=== PATIENT | male | born 1965 | race Caucasian/White ===

== ENCOUNTER 2017-02-10 21:39 | Emergency (ER) | payer OTHER ==
[2017-02-10] MEDS ORDERED: Ketorolac Tromethamine 30 MG/ML VIAL ONE (21:50)
[2017-02-10 22:00] LABS: Bilirubin Negative (Negative); Blood, Urine Trace (Negative); Glucose, Urine (Dipstick) Negative (Negative); Ketone, Urine Negative (Negative); Nitrite Negative (Negative); Protein, Urine (Dipstick) Negative (Neg-Trace); Urobilinogen 0.2 mg/dL (0.2-1.0)
[2017-02-10] MEDS ORDERED: Promethazine HCl 25 MG/ML VIAL ONE (22:02)
[2017-02-10 22:05] LABS: Bacteria/HPF None Seen HPF (None Seen); Hyaline Casts/LPF NONE SEEN LPF (0-3 Hyaline); RBC/HPF 0-3 HPF (0-3); Squamous Epithelial None Seen HPF (0-3); WBC/HPF 0-3 HPF (0-3)
--- NOTE | 2017-02-10 23:07 | CT ---
ABDOMEN CT WITHOUT CONTRAST PELVIC CT WITHOUT CONTRAST: History: Left flank pain since this evening, back pain for one week. Nausea. Comparison: 08-23-15 Technique: Abdomen and pelvic CT performed without contrast. Coronal reformatted images are submitte d for interpretation. FINDINGS: ABDOMEN CT: Lung bases are clear. Heart size is normal. No significant pericardial fluid. Descending thoracic ao rta and abdominal aorta have normal caliber. No periaortic fat stranding. Limited evaluation of the solid organs due to lack of IV contrast. No solid organ abnormality. Calci fied granulomas of the spleen are noted. Gallbladder is unremarkable. No extrahepatic, retrocrural or lymphadenopathy. No mass, lymphadenopathy, free air or free fluid. Limited evaluation of the alimentary canal due to lack of oral contrast. No evidence of bowel obstru ction. Ileocecal junction is normal. Normal caliber appendix. Scattered fecal material in a nondiste nded, nondilated colon. Diverticula in the sigmoid colon. No diverticulitis. There are bilateral nonobstructing renal calculi. Large calcification in the left kidney measures 0. 5 cm in the craniocaudal dimension. Large calcification in the right renal collecting system measure s 0.5 cm in the craniocaudal dimension. Bilaterally, no hydronephrosis or perinephric fat stranding. Bilateral ureters have a normal caliber. No hydroureter, fat stranding, or ureterolithiasis. PELVIC CT: No mass, lymphadenopathy, free air or free fluid. Urinary bladder is unremarkable. No bladder calcif ications. There are no osteoblastic or osteolytic lesions. Vacuum disc phenomenon at the lumbosacral junction. No high grade central canal stenosis. Evaluation is limited by technique. IMPRESSION: 1. Bilateral nonobstructing renal calculi. 2. No evidence of obstructive uropathy. 3. Diverticulosis. POS: [facility]
== END 2017-02-11 00:05 | disposition home or self-care (01) ==
LOC: SCSER 21:39
DX: N20.0 Calculus of kidney (principal); I10 Essential (primary) hypertension; G47.30 Sleep apnea, unspecified; F17.210 Nicotine dependence, cigarettes, uncomplicated
CPT/HCPCS: 74176; 81003; 81015; 96361; 96374; 96375; J1885; J2270; J2550

== ENCOUNTER 2017-03-08 10:39 | Outpatient (CLI) | payer OTHER ==
--- NOTE | 2017-03-08 14:06 | RAD ---
CERVICAL SPINE THREE VIEWS: HISTORY: Neck pain. Radiation to left shoulder. FINDINGS: There is slight anterolisthesis of C4 on C5, measured at approximately 3 mm. Mild to moderate degen erative changes at C5-C6 and C6-C7. Mild loss of disk space at these levels and mild to moderate an terior osteophytes at these levels. Posterior spondylitic changes at C5-C6. IMPRESSION: Degenerative changes of the mid cervical spine, as described above. POS: [facility]
== END 2017-03-08 10:40 | disposition home or self-care (01) ==
LOC: SCSRAD 10:39
PROVIDERS: ATTEND Chiropractor
DX: Z87.81 Personal history of (healed) traumatic fracture (principal); M47.892 Other spondylosis, cervical region
CPT/HCPCS: 72040

== ENCOUNTER 2017-03-28 08:23 | Outpatient (CLI) | payer OTHER ==
[2017-03-28] MEDS ORDERED: Gadobenate Dimeglumine 529 MG/1 ML (20ML VIAL) ONE (09:00)
--- NOTE | 2017-03-28 10:49 | MRI ---
CERVICAL SPINE MRI WITH AND WITHOUT CONTRAST: Date: 03/28/17 COMPARISON: None. HISTORY: Neck pain for 3 weeks, cervical radiculopathy. TECHNIQUE: Multiplanar, multisequence MR imaging of the cervical spine obtained with and without contrast. FINDINGS: The sagittal STIR imaging demonstrates no focal area of osseous marrow edema. No prevertebral soft ti ssue abnormality. No anterolisthesis or retrolisthesis. There is mild degenerative change at the atla ntoaxial interspace. C2-3: There is mild facet and uncovertebral osteophyte formation on the left with mild left neural foramina l stenosis. No central canal or right neural foraminal stenosis. Minimal central disc bulge. C3-4: Disc space narrowing, disc desiccation, central annular tear, and mild disc bulge present with partia l effacement of the ventral thecal sac. No significant central canal stenosis. Facet and uncovertebra l osteophyte formation noted bilaterally, left greater than right. Mild left neural foraminal stenosi s. C4-5: Bilateral facet and uncovertebral osteophyte formation, right greater than left. There is moderate ne ural foraminal stenosis bilaterally, right greater than left. No significant central canal stenosis. C5-6: There is disc space narrowing, disc desiccation, and minimal disc bulge with no significant central c anal stenosis. There is significant facet and uncovertebral osteophyte formation, right greater than left, with moderate bilateral neural foraminal stenosis, right greater than left. C6-7: There is disc space narrowing, disc desiccation, and disc bulge. There is facet and uncovertebral ost eophyte formation. There is a left foraminal disc protrusion. Central canal stenosis is noted. There is severe left neural foraminal stenosis and mild/moderate rig ht neural foraminal stenosis. C7-T1: Intervertebral disc height and signal intensity is normal. Mild bilateral facet hypertrophy with no s ignificant central canal or neural foraminal stenosis. No focal area of abnormal signal intensity is identified within the cervical cord. Postcontrast imaging demonstrates no abnormal enhancement involving contents of the thecal sac, the i ntervertebral discs, or the imaged osseous structures. IMPRESSION: Degenerative change within the cervical spine with associated central canal and neural foraminal sten osis as detailed above. POS: [facility]
--- NOTE | 2017-03-28 11:02 | CT ---
CHEST CT WITHOUT CONTRAST: History: Evaluate lung mass. Comparison: 12-27-15, 12-16-14 Technique: Chest CT is performed without contrast. Coronal reformatted images are submitted for inter pretation. FINDINGS: Limited evaluation of the mediastinum due to lack of IV contrast. No mass, lymphadenopathy, or hemato ma. Heart size is within normal limits. No significant pericardial fluid. Visualized upper solid organs are unremarkable. Bilateral nonobstructing intrarenal calculi are noted . Trachea and central bronchi are patent. Stable bleb in the superior segment of the right lower lobe. Stable 4 mm nodule in the right lower lobe. There is a 6 mm nodule in the left lower lobe which is al so unchanged since December 2014. No new masses. No consolidation. No pleural effusion or pneumothorax. IMPRESSION: Stable subcentimeter nodules in the lung parenchyma. There is over two years of stability. POS: [facility]
== END 2017-03-28 08:24 | disposition home or self-care (01) ==
LOC: SCSCT 08:23
PROVIDERS: ATTEND Family Medicine
DX: R91.1 Solitary pulmonary nodule (principal); R91.8 Other nonspecific abnormal finding of lung field; M47.22 Other spondylosis with radiculopathy, cervical region; M48.02 Spinal stenosis, cervical region; M99.51 Intervertebral disc stenosis of neural canal of cervical region
CPT/HCPCS: 71250; 72156; A9579

== ENCOUNTER 2017-04-18 09:11 | Outpatient (CLI) | payer OTHER ==
--- NOTE | 2017-04-18 10:35 | RAD ---
CERVICAL SPINE THREE VIEWS: History: 51-year-old male with cervical radiculopathy and neck pain since February 2017. FINDINGS: Multilevel disc osteophytosis particularly from C4-5 through C6-7 levels. Mild stable anterolisthesis of C4 on C5 when compared to 03-08-17. There is no prevertebral soft tissue swelling. No abnormal tr anslation between flexion and extension. IMPRESSION: Stable anterolisthesis of C4 on C5 without evidence of abnormal translation between flexion and exten magan. Cervical spondylosis, particularly at C4-5 through C6-7. POS: [facility]
== END 2017-04-18 09:12 | disposition home or self-care (01) ==
LOC: TBSIIMAG 09:11
PROVIDERS: ATTEND Neurological Surgery
DX: M47.22 Other spondylosis with radiculopathy, cervical region (principal); M43.12 Spondylolisthesis, cervical region
CPT/HCPCS: 72040

== ENCOUNTER 2017-04-24 11:03 | Outpatient (CLI) | payer OTHER ==
[2017-04-24 12:19] LABS: #Eosinphils 0.2 thou/uL (0.0-0.7); #Lymphocytes 1.2 thou/uL (1.20-3.40); #Monocytes 0.4 thou/uL (0.11-0.59); #Neutrophils 2.7 thou/uL (1.40-6.50); %Lymphocytes 25.5 % (21.0-51.0); %Monocytes 9.1 % (0.0-10.0); Mean Platelet Volume 8.7 fL (7.4-10.4); Red Blood Cell (RBC) Count 4.19 mill/uL (4.70-6.10); White Blood Cell (WBC) Count 4.6 thou/uL (4.8-10.8)
[2017-04-24 12:32] LABS: Anion Gap 12 mmol/L (10-20); BUN (Urea Nitrogen) 26 mg/dL (8.4-25.7); Calc. Creatinine Clearance 0 mL/min (70-130); Calcium 9.6 mg/dL (7.8-10.44); Carbon Dioxide 31 mmol/L (22-29); Chloride 102 mmol/L (98-107); Estimated GFR-MDRD 52
== END 2017-04-24 11:04 | disposition home or self-care (01) ==
LOC: LABBT 11:03
PROVIDERS: ATTEND Specialist
DX: Z01.818 Encounter for other preprocedural examination (principal); K64.8 Other hemorrhoids
CPT/HCPCS: 80048; 85025; 93005; 93010

== ENCOUNTER 2017-04-25 08:04 | Day surgery (SDC) | payer OTHER ==
[2017-04-24 11:21] VITALS: BMI 27.2
[2017-04-25] MEDS ORDERED: Ketorolac Tromethamine 30 MG/ML VIAL ONE (08:43)
[2017-04-25] MEDS ORDERED: cefOXitin Sodium 2 GM, Syringe 1 ML in Sterile Water 10 ML SLOW IVP SCH (09:00)
[2017-04-25] MEDS ORDERED: Fentanyl 250 MCG/5 ML VIAL ONE (10:17)
[2017-04-25] MEDS ORDERED: Midazolam HCl 2 mg/2 ml Vial ONE (10:17)
[2017-04-25] MEDS ORDERED: Lidocaine 2% Jelly 5 ML TUBE ONE (10:18)
[2017-04-25] MEDS ORDERED: Fentanyl 100 MCG/2 ML VIAL ONE ×2 (11:55→12:25)
[2017-04-25] MEDS ORDERED: Ondansetron HCl/PF 4 MG/2 ML Vial ONE (15:13)
[2017-04-25] MEDS ORDERED: Lidocaine 1% PF 5 ML VIAL ONE (15:13)
[2017-04-25] MEDS ORDERED: Propofol 200 MG/20 ML VIAL ONE (15:13)
--- NOTE | 2017-04-26 10:18 | OP ---
DATE OF OPERATION: 04/25/2017 PREOPERATIVE DIAGNOSES: Prolapsing and bleeding internal hemorrhoids. POSTOPERATIVE DIAGNOSES: Prolapsing and bleeding internal hemorrhoids. OPERATION PERFORMED: PPH stapled hemorrhoidectomy. SURGEON: Job Barton M.D. ANESTHESIA: General endotracheal. INDICATIONS: Patient is a 51-year-old white male. He presents with prolapsing and bleeding internal hemorrhoids with no significant external hemorrhoids. He is taken to the operating room at [facility] for stapled hemorrhoidectomy. DESCRIPTION OF OPERATION: Informed consent was obtained. Patient was taken to the operating room [facility] general anesthesia was obtained with the patient in supine position. He was then rolled over int o a prone jackknife position. Buttocks were taped apart. The surrounding perianal area was trimmed. The area was prepped with Betadine and draped in sterile fashion. Local anesthetic was infiltrated using 0.25% Marcaine with epinephrine. A digital examination was performed. He was found to have a dominant internal hemorrhoidal complex at the 6 o'clock radian. The anal dilator was placed without resistance. The anal retractor was then positioned and then secured in place with interrupted sutur es of 2-0 Vicryl. The partial obturator was used to place a pursestring suture of 2-0 Prolene severa l centimeters superior to the dentate line. The stapler was then obtained and maximally opened. The anvil was positioned above the pursestring suture and the suture was tied around the post. The stap le was closed with traction on the pursestring suture. When the staple was maximally closed, it was fired and subsequently removed. The specimen was inspected and found to be of appropriate width and thickness. The staple line was inspected and found to be a couple of minor oozing spots that were co ntrolled with sutures of 3-0 Vicryl. An additional suture of 3-0 Vicryl was placed around the staple line specifically at the 6 o'clock radian to address the blood supply to the dominant prolapsing hem orrhoid. Gelfoam and lidocaine jelly was then placed within the anal canal. Dry gauze dressing and mesh pants placed externally. There were no complications. The patient tolerated the procedure well and was taken to recovery room in stable condition.
== END 2017-04-25 13:10 | disposition home or self-care (01) ==
LOC: SDC 08:04
PROVIDERS: ATTEND Specialist
PROC: 06BY0ZC Excision of Hemorrhoidal Plexus, Open Approach (ICD-10-PCS; principal; 2017-04-25)
DX: K64.8 Other hemorrhoids (principal); E78.00 Pure hypercholesterolemia, unspecified; G47.30 Sleep apnea, unspecified; Z77.22 Contact with and (suspected) exposure to environmental tobacco smoke (acute) (chronic); Z79.2 Long term (current) use of antibiotics; Z79.899 Other long term (current) drug therapy; Z88.0 Allergy status to penicillin; Z91.041 Radiographic dye allergy status; Z90.89 Acquired absence of other organs; Z98.890 Other specified postprocedural states; Z87.442 Personal history of urinary calculi
CPT/HCPCS: 96374; A4216; J0131; J0694; J1885; J2001; J2250; J2405; J2704; J3010

== ENCOUNTER 2017-12-26 12:00 | Outpatient (CLI) | payer OTHER ==
[2017-12-26 14:00] LABS: Hemoglobin 13.9 g/dL (14.0-18.0); Mean Corpuscular HGB CONC 35.2 g/dL (32.0-36.0); Mean Corpuscular Hemoglobin 33.3 pg (27.0-31.0); Mean Corpuscular Volume 94.5 fL (78.0-98.0); Mean Platelet Volume 8.4 fL (7.4-10.4); Platelet Count 153 thou/uL (130-400); RBC Distribution Width 11.5 % (11.5-14.5); Red Blood Cell (RBC) Count 4.18 mill/uL (4.70-6.10); White Blood Cell (WBC) Count 3.5 thou/uL (4.8-10.8)
[2017-12-26 14:05] LABS: INR-International Normal Ratio 0.9; PTT 25.5 SEC (22.9-36.1); Prothrombin Time 12.1 SEC (12.0-14.7)
--- NOTE | 2017-12-27 06:21 | EKG ---
Test Reason : Blood Pressure : / mmHG Vent. Rate : 064 BPM Atrial Rate : 064 BPM P-R Int : 170 ms QRS Dur : 144 ms QT Int : 460 ms P-R-T Axes : 013 -56 006 degrees QTc Int : 474 ms Normal sinus rhythm Right bundle branch block Left anterior fascicular block Bifascicular block Left ventricular hypertrophy with QRS widening Abnormal ECG Compared to ekg of 24-Apr-17 Right bundle branch block is now noted. Confirmed by GT ROBLES ([id number]) on 12/27/2017 6:20:54 AM Referred By: [facility] Confirmed By:GT ROBLES
== END 2017-12-26 12:01 | disposition home or self-care (01) ==
LOC: LABBT 12:00
PROVIDERS: ATTEND Neurological Surgery
DX: Z01.812 Encounter for preprocedural laboratory examination (principal); M50.20 Other cervical disc displacement, unspecified cervical region
CPT/HCPCS: 93005; 93010

== ENCOUNTER 2018-01-04 14:38 | Emergency (ER) | payer OTHER ==
--- NOTE | 2018-01-04 16:22 | ULT ---
LEFT LOWER EXTREMITY VENOUS DUPLEX EXAM: 01/04/18 Deep veins of the left lower extremity evaluated with color doppler, spectral analysis and compressio n. INDICATIONS: Left lower extremity pain and edema. Deep veins of the left lower extremity show normal compression and blood flow. No evidence of left lo wer extremity DVT. IMPRESSION: Negative left lower extremity venous duplex exam. POS: [facility]
== END 2018-01-04 16:30 | disposition home or self-care (01) ==
LOC: SCSER 14:38
DX: M79.652 Pain in left thigh (principal); G47.30 Sleep apnea, unspecified; F17.210 Nicotine dependence, cigarettes, uncomplicated; Z87.442 Personal history of urinary calculi

== ENCOUNTER 2018-02-27 08:53 | Outpatient (CLI) | payer OTHER ==
--- NOTE | 2018-02-27 10:06 | RAD ---
CERVICAL SPINE 3 VIEWS: COMPARISON: 04/18/2017. HISTORY: Surgery followup. FINDINGS: Interval placement of an anterior fusion plate with transvertebral body screw at C6 and C7. There is 1.7 mm of retrolisthesis of C6 upon C7. There is 2.4 mm anterolisthesis of C4 upon C5. There is 2. 2 mm anterolisthesis of C7 upon T1. Predental space is normal. On the open-mouth projection, latera l masses of C1 an dC2 are intact. Odontoid process is intact. There is hypertrophy of the facets, r ight greater than left. IMPRESSION: Uncomplicated cervical fusion changes. POS: [facility]
== END 2018-02-27 08:54 | disposition home or self-care (01) ==
LOC: TBSIIMAG 08:53
PROVIDERS: ATTEND Neurological Surgery
DX: M54.12 Radiculopathy, cervical region (principal); M50.20 Other cervical disc displacement, unspecified cervical region; Z98.1 Arthrodesis status
CPT/HCPCS: 72040

== ENCOUNTER 2022-02-20 08:28 | Outpatient (CLI) | payer OTHER | END 2022-02-20 08:29 | disposition home or self-care (01) | LOC: SCSMRI 08:28 → EDBD 09:30 | PROVIDERS: ATTEND Orthopaedic Surgery | DX: M23.92 Unspecified internal derangement of left knee (principal); S83.242A Other tear of medial meniscus, current injury, left knee, initial encounter ==